=== PATIENT | male | born 1960 | race African-American/Black ===

== ENCOUNTER 2017-05-16 13:18 | Emergency (ER) | payer MEDICAID ==
[~2017-05-16] VITALS: Ht 177.8 cm; Wt 94.0 kg
[2017-05-16] MEDS ORDERED: SODIUM CHLORIDE 0.9% 1,000 ML IV ONE (15:26)
[2017-05-16] MEDS ORDERED: FAMOTIDINE 20MG/2ML VIAL IV STA (15:26)
[2017-05-16] MEDS ORDERED: ONDANSETRON HCL 4MG/2ML VIAL IV STA (15:26)
[2017-05-16] MEDS ORDERED: KETOROLAC 30MG/ML VIAL IV STA (15:26)
[2017-05-16 16:04] LABS: INR 1.1; PROTHROMBIN TIME 11.8 sec (9.4-11.6)
[2017-05-16 16:06] LABS: BASOPHILS % 0.5 % (0.0-2.0); HEMATOCRIT. 52.5 % (42.0-52.0); HEMOGLOBIN. 17.1 g/dL (14.0-18.0); LYMPHOCYTES % 16.9 % (20.0-50.0); MEAN CORPUSCULAR HEMOGLOBIN 27.5 pg (28.0-32.0); MEAN CORPUSCULAR VOLUME 84.2 fL (80.0-94.0); MEAN PLATELET VOLUME 8.8 fl (7.4-10.4); MONOCYTES % 7.3 % (2.0-8.0); NEUTROPHILS % 75.3 % (40.0-76.0); PLATELET 343 x1000/uL (130-400); RED BLOOD CELL COUNT 6.24 mill/uL (4.7-6.1); RED CELL DISTRIBUTION WIDTH 19.3 % (11.6-14.6)
[2017-05-16 16:08] LABS: CARBON DIOXIDE 26 mEq/L (21-32); CHLORIDE 104 mEq/L (98-107)
[2017-05-16 18:35] LABS: CLARITY URINE CLOUDY (CLEAR); COLOR URINE DARK YELLOW (YELLOW); GLUCOSE URINE NEGATIVE (NEGATIVE); KETONES URINE TRACE (NEGATIVE); LEUKOCYTE ESTERASE URINE TRACE (NEGATIVE); NITRITE URINE NEGATIVE (NEGATIVE); OCCULT BLOOD URINE NEGATIVE (NEGATIVE); PROTEIN URINE 1+ (NEGATIVE)
[2017-05-16] MEDS ORDERED: IOHEXOL-300 100 ML BOTTLE ONE (19:33)
[2017-05-16 20:03] VITALS: BP 162/102
== END 2017-05-16 21:33 | disposition home or self-care (01) ==
LOC: ER 13:58
DX: K56.2 Volvulus (principal); K44.9 Diaphragmatic hernia without obstruction or gangrene; K76.0 Fatty (change of) liver, not elsewhere classified; R91.1 Solitary pulmonary nodule
CPT/HCPCS: 36415; 74177; 80053; 81001; 83690; 85025; 85610; 96361; 96374; 96375; 99285; J1885; J2405; J3490; J7030; Q9967; Z7610; 81025

== ENCOUNTER 2017-06-18 16:50 | Emergency (ER) | payer MEDICAID ==
[~2017-06-18] VITALS: Ht 177.8 cm; Wt 94.0 kg
[2017-06-18] MEDS ORDERED: MAGNESIUM/ALUMINUM HYDROXIDE/SIMETHICONE 30ML UDC PO STA (22:24)
[2017-06-18] MEDS ORDERED: PANTOPRAZOLE SODIUM 40 MG/VIAL IV STA (22:24)
[2017-06-18] MEDS ORDERED: VISCOUS LIDOCAINE 2% 15 ML UDC PO STA (22:24)
[2017-06-18] MEDS ORDERED: ONDANSETRON HCL 4MG/2ML VIAL IV STA (22:24)
[2017-06-18] MEDS ORDERED: KETOROLAC 30MG/ML VIAL IV STA (22:24)
[2017-06-18 23:01] LABS: BASOPHILS % 0.3 % (0.0-2.0); HEMATOCRIT. 45.9 % (42.0-52.0); HEMOGLOBIN. 15.3 g/dL (14.0-18.0); LYMPHOCYTES % 12.6 % (20.0-50.0); MEAN CORPUSCULAR HEMOGLOBIN 29.5 pg (28.0-32.0); MEAN CORPUSCULAR VOLUME 88.9 fL (80.0-94.0); MEAN PLATELET VOLUME 8.9 fl (7.4-10.4); MONOCYTES % 3.5 % (2.0-8.0); NEUTROPHILS % 83.6 % (40.0-76.0); PLATELET 289 x1000/uL (130-400); RED BLOOD CELL COUNT 5.17 mill/uL (4.7-6.1); RED CELL DISTRIBUTION WIDTH 18.3 % (11.6-14.6)
[2017-06-18 23:06] LABS: CHLORIDE 108 mEq/L (98-107)
[2017-06-18 23:09] LABS: INR 1.1; PROTHROMBIN TIME 11.6 sec (9.4-11.6)
[2017-06-18 23:15] LABS: CARBON DIOXIDE 25 mEq/L (21-32)
[2017-06-18] MEDS ORDERED: PANTOPRAZOLE SODIUM 40 MG/VIAL IV NR (23:15)
[2017-06-19 02:56] VITALS: BP 144/77
== END 2017-06-19 02:58 | disposition home or self-care (01) ==
LOC: ER 16:59
DX: K29.70 Gastritis, unspecified, without bleeding (principal); K44.9 Diaphragmatic hernia without obstruction or gangrene; B19.20 Unspecified viral hepatitis C without hepatic coma; Z88.5 Allergy status to narcotic agent; Z87.19 Personal history of other diseases of the digestive system
CPT/HCPCS: 36415; 74176; 80053; 83690; 85025; 85610; 93005; 96374; 96375; 99285; C9113; J1885; J2405

== ENCOUNTER 2017-09-14 20:36 | Emergency (ER) | payer MEDICAID ==
[~2017-09-14] VITALS: Ht 177.8 cm; Wt 77.2 kg
[2017-09-14] MEDS ORDERED: KETOROLAC 30MG/ML VIAL IV STA (22:57)
[2017-09-14] MEDS ORDERED: ONDANSETRON HCL 4MG/2ML VIAL IV STA (22:57)
[2017-09-14] MEDS ORDERED: SODIUM CHLORIDE 0.9% 1,000 ML IV ONE (22:57)
[2017-09-14 23:24] LABS: BASOPHILS % 0.2 % (0.0-2.0); HEMATOCRIT. 43.3 % (42.0-52.0); HEMOGLOBIN. 14.8 g/dL (14.0-18.0); MEAN CORPUSCULAR HEMOGLOBIN 32.1 pg (28.0-32.0); MEAN CORPUSCULAR VOLUME 93.7 fL (80.0-94.0); MEAN PLATELET VOLUME 8.9 fl (7.4-10.4); MONOCYTES % 1.9 % (2.0-8.0); NEUTROPHILS % 89.9 % (40.0-76.0); PLATELET 296 x1000/uL (130-400); RED BLOOD CELL COUNT 4.62 mill/uL (4.7-6.1); RED CELL DISTRIBUTION WIDTH 14.2 % (11.6-14.6)
[2017-09-14 23:29] LABS: INR 1.1
[2017-09-14 23:38] LABS: CHLORIDE 108 mEq/L (98-107)
[2017-09-14 23:43] LABS: ETHANOL BLOOD < 10 mg/dL
[2017-09-15] MEDS ORDERED: ONDANSETRON HCL 4MG/2ML VIAL IV STA (00:53)
[2017-09-15] MEDS ORDERED: MORPHINE SULFATE 4 MG/ML CPJ (NOT FOR IM USE) IV STA (00:53)
[2017-09-15 02:19] VITALS: BP 139/76
== END 2017-09-15 02:21 | disposition home or self-care (01) ==
LOC: ER 22:37
DX: R10.13 Epigastric pain (principal); R11.2 Nausea with vomiting, unspecified; Z88.5 Allergy status to narcotic agent
CPT/HCPCS: 36415; 74176; 80053; 83690; 85025; 85610; 96361; 96374; 96375; 96376; 99285; G0482; J1885; J2270; J2405; J7030; Z7610

== ENCOUNTER 2017-09-16 09:11 | Emergency (ER) | payer MEDICAID ==
[~2017-09-16] VITALS: Ht 177.8 cm; Wt 77.0 kg
[2017-09-16] MEDS ORDERED: SODIUM CHLORIDE 0.9% 1,000 ML IV ONE ×2 (11:55→13:54)
[2017-09-16] MEDS ORDERED: FAMOTIDINE 20MG/2ML VIAL IV STA (11:55)
[2017-09-16] MEDS ORDERED: VISCOUS LIDOCAINE 2% 15 ML UDC PO STA (11:55)
[2017-09-16] MEDS ORDERED: ONDANSETRON HCL 4MG/2ML VIAL IV STA ×2 (11:55→14:26)
[2017-09-16] MEDS ORDERED: MAGNESIUM/ALUMINUM HYDROXIDE/SIMETHICONE 30ML UDC PO STA (11:55)
[2017-09-16] MEDS ORDERED: MORPHINE SULFATE 4 MG/ML CPJ (NOT FOR IM USE) IV STA (12:49)
[2017-09-16 12:59] LABS: BASOPHILS % 0.2 % (0.0-2.0); HEMATOCRIT. 44.8 % (42.0-52.0); HEMOGLOBIN. 15.2 g/dL (14.0-18.0); LYMPHOCYTES % 17.9 % (20.0-50.0); MEAN CORPUSCULAR HEMOGLOBIN 32.1 pg (28.0-32.0); MEAN CORPUSCULAR VOLUME 94.3 fL (80.0-94.0); MEAN PLATELET VOLUME 9.1 fl (7.4-10.4); NEUTROPHILS % 75.9 % (40.0-76.0); PLATELET 340 x1000/uL (130-400); RED BLOOD CELL COUNT 4.75 mill/uL (4.7-6.1); RED CELL DISTRIBUTION WIDTH 14.1 % (11.6-14.6)
[2017-09-16 13:04] LABS: CHLORIDE 109 mEq/L (98-107)
[2017-09-16 14:45] LABS: CLARITY URINE CLEAR (CLEAR); COLOR URINE ORANGE (YELLOW); KETONES URINE 2+ (NEGATIVE); LEUKOCYTE ESTERASE URINE TRACE (NEGATIVE); NITRITE URINE NEGATIVE (NEGATIVE); OCCULT BLOOD URINE NEGATIVE (NEGATIVE); PROTEIN URINE TRACE (NEGATIVE); SPECIFIC GRAVITY URINE 1.031 (1.005-1.030)
[2017-09-16 15:04] LABS: *AMPHETAMINES SCREEN URINE NEGATIVE (NEGATIVE); *BARBITURATES SCREEN URINE NEGATIVE (NEGATIVE); *BENZODIAZEPINES SCREEN URINE NEGATIVE (NEGATIVE); *COCAINE SCREEN URINE NEGATIVE (NEGATIVE); METHADONE URINE SCREEN NEGATIVE (NEGATIVE); OPIATES URINE SCREEN PRESUMTIVE POSITIVE (NEGATIVE)
[2017-09-16 15:05] LABS: CANNABINOID URINE SCREEN PRESUMTIVE POSITIVE (NEGATIVE); PHENCYCLIDINE URINE SCREEN NEGATIVE (NEGATIVE)
[2017-09-16 15:30] VITALS: BP 129/75
== END 2017-09-16 16:04 | disposition home or self-care (01) ==
LOC: ER 10:03
DX: R10.33 Periumbilical pain (principal); Z87.19 Personal history of other diseases of the digestive system; Z88.5 Allergy status to narcotic agent
CPT/HCPCS: 36415; 80053; 80305; 81003; 83690; 85025; 96361; 96374; 96375; 96376; 99284; J2270; J2405; J3490; J7030; Z7610

== ENCOUNTER 2017-09-17 08:52 | Emergency (ER) | payer MEDICAID ==
[~2017-09-17] VITALS: Ht 177.8 cm; Wt 78.0 kg
[2017-09-17] MEDS ORDERED: MORPHINE SULFATE 4 MG/ML CPJ (NOT FOR IM USE) IV STA ×2 (10:23→11:34)
[2017-09-17] MEDS ORDERED: SODIUM CHLORIDE 0.9% 1,000 ML IV ONE (10:23)
[2017-09-17] MEDS ORDERED: ONDANSETRON HCL 4MG/2ML VIAL IV STA ×2 (10:23→11:34)
[2017-09-17 10:51] LABS: BASOPHILS % 0.4 % (0.0-2.0); EOSINOPHILS % 0.3 % (0.0-5.0); HEMATOCRIT. 46.2 % (42.0-52.0); HEMOGLOBIN. 15.6 g/dL (14.0-18.0); LYMPHOCYTES % 21.9 % (20.0-50.0); MEAN CORPUSCULAR HEMOGLOBIN 31.9 pg (28.0-32.0); MEAN CORPUSCULAR VOLUME 94.7 fL (80.0-94.0); NEUTROPHILS % 70.4 % (40.0-76.0); PLATELET 284 x1000/uL (130-400); RED BLOOD CELL COUNT 4.88 mill/uL (4.7-6.1); RED CELL DISTRIBUTION WIDTH 14.1 % (11.6-14.6)
[2017-09-17 10:56] LABS: INR 1.1; PROTHROMBIN TIME 11.5 sec (9.4-11.6)
[2017-09-17 11:01] LABS: CHLORIDE 107 mEq/L (98-107)
[2017-09-17] MEDS ORDERED: IOHEXOL-300 100 ML BOTTLE ONE (11:22)
[2017-09-17] MEDS ORDERED: KCL 20MEQ/100ML PREMIX 100 ML IV ONE ×2 (11:45→12:45)
[2017-09-17 12:27] LABS: CLARITY URINE CLEAR (CLEAR); COLOR URINE DARK YELLOW (YELLOW); KETONES URINE TRACE (NEGATIVE); LEUKOCYTE ESTERASE URINE NEGATIVE (NEGATIVE); NITRITE URINE NEGATIVE (NEGATIVE); OCCULT BLOOD URINE NEGATIVE (NEGATIVE); PROTEIN URINE NEGATIVE (NEGATIVE); SPECIFIC GRAVITY URINE 1.045 (1.005-1.030)
[2017-09-17] MEDS ORDERED: POTASSIUM CHLORIDE 20MEQ TABLET SR PO ONE (12:45)
[2017-09-17 17:17] VITALS: BP 148/97
== END 2017-09-17 17:35 | disposition home or self-care (01) ==
LOC: ER 09:41
DX: R10.30 Lower abdominal pain, unspecified (principal); R11.2 Nausea with vomiting, unspecified; K44.9 Diaphragmatic hernia without obstruction or gangrene; E87.6 Hypokalemia; Z98.890 Other specified postprocedural states; Z88.5 Allergy status to narcotic agent; Z87.19 Personal history of other diseases of the digestive system
CPT/HCPCS: 36415; 74177; 80053; 81003; 83690; 85025; 85610; 93005; 96361; 96365; 96366; 96375; 96376; 99285; J2270; J2405; J3480; J7030; Q9967; Z7610

== ENCOUNTER 2018-09-10 08:55 | Emergency (ER) | payer MEDICAID ==
[~2018-09-10] VITALS: Ht 190.5 cm; Wt 73.0 kg
[2018-09-10 11:25] LABS: CLARITY URINE TURBID (CLEAR); COLOR URINE YELLOW (YELLOW); KETONES URINE NEGATIVE (NEGATIVE); LEUKOCYTE ESTERASE URINE NEGATIVE (NEGATIVE); NITRITE URINE NEGATIVE (NEGATIVE); OCCULT BLOOD URINE NEGATIVE (NEGATIVE); PH URINE >=9.0 (4.5-8.0); PROTEIN URINE NEGATIVE (NEGATIVE); SPECIFIC GRAVITY URINE 1.012 (1.005-1.030)
[2018-09-10] MEDS ORDERED: ONDANSETRON HCL 4MG/2ML INJ IV STA ×2 (12:32→15:25)
[2018-09-10] MEDS ORDERED: MORPHINE SULFATE 4 MG/ML CPJ (NOT FOR IM USE) IV STA (12:32)
[2018-09-10] MEDS ORDERED: SODIUM CHLORIDE 0.9% 1,000 ML IV ONE ×2 (12:32→15:25)
[2018-09-10 12:59] LABS: BASOPHILS % 0.1 % (0.0-2.0); EOSINOPHILS % 0.2 % (0.0-5.0); HEMATOCRIT. 42.2 % (42.0-52.0); MEAN CORPUSCULAR VOLUME 96.3 fL (80.0-94.0); MEAN PLATELET VOLUME 8.4 fl (7.4-10.4); NEUTROPHILS % 76.7 % (40.0-76.0); PLATELET 267 x1000/uL (130-400); RED BLOOD CELL COUNT 4.38 mill/uL (4.7-6.1)
[2018-09-10 13:07] LABS: INR 1.1; PROTHROMBIN TIME 10.7 sec (9.1-11.1)
[2018-09-10 13:09] LABS: CHLORIDE 105 mEq/L (98-107)
[2018-09-10 13:12] LABS: ETHANOL BLOOD < 10 mg/dL
[2018-09-10] MEDS ORDERED: IOHEXOL-300 100 ML BOTTLE ONE (15:19)
[2018-09-10] MEDS ORDERED: KETOROLAC 30MG/ML VIAL IV STA (15:25)
[2018-09-10] MEDS ORDERED: MAGNESIUM/ALUMINUM HYDROXIDE/SIMETHICONE 30ML UDC PO STA (15:25)
[2018-09-10] MEDS ORDERED: FAMOTIDINE 20MG/2ML VIAL IV STA (15:25)
[2018-09-10 17:43] LABS: *AMPHETAMINES SCREEN URINE NEGATIVE (NEGATIVE)
[2018-09-10 17:44] LABS: *BARBITURATES SCREEN URINE NEGATIVE (NEGATIVE); *BENZODIAZEPINES SCREEN URINE NEGATIVE (NEGATIVE); *COCAINE SCREEN URINE NEGATIVE (NEGATIVE)
[2018-09-10 17:45] LABS: CANNABINOID URINE SCREEN PRESUMTIVE POSITIVE (NEGATIVE); OPIATES URINE SCREEN NEGATIVE (NEGATIVE); PHENCYCLIDINE URINE SCREEN NEGATIVE (NEGATIVE)
[2018-09-10 17:46] LABS: METHADONE URINE SCREEN NEGATIVE (NEGATIVE)
[2018-09-10 18:36] VITALS: BP 135/72
== END 2018-09-10 18:57 | disposition home or self-care (01) ==
LOC: ER 09:16 → CANBEDREQ 19:38
DX: R11.10 Vomiting, unspecified (principal); R10.13 Epigastric pain; F12.10 Cannabis abuse, uncomplicated; Z88.5 Allergy status to narcotic agent
CPT/HCPCS: 36415; 71045; 74177; 80053; 80305; 80320; 81003; 83690; 85025; 85610; 96374; 96375; 96376; 99284; J1885; J2270; J2405; J3490; J7030; Q9967; G0480

== ENCOUNTER 2018-11-25 10:34 | Emergency (ER) | payer MEDICAID ==
[~2018-11-25] VITALS: Ht 177.8 cm; Wt 75.0 kg
[2018-11-25] MEDS ORDERED: FAMOTIDINE 20MG/2ML VIAL IV STA (11:05)
[2018-11-25] MEDS ORDERED: MORPHINE SULFATE 4 MG/ML CPJ (NOT FOR IM USE) IV STA (11:05)
[2018-11-25] MEDS ORDERED: SODIUM CHLORIDE 0.9% 1,000 ML IV ONE (11:05)
[2018-11-25] MEDS ORDERED: ONDANSETRON HCL 4MG/2ML INJ IV STA (11:05)
[2018-11-25 11:37] LABS: BASOPHILS % 0.2 % (0.0-2.0); EOSINOPHILS % 2.5 % (0.0-5.0); HEMATOCRIT. 44.9 % (42.0-52.0); HEMOGLOBIN. 14.9 g/dL (14.0-18.0); LYMPHOCYTES % 27.1 % (20.0-50.0); MEAN CORPUSCULAR HEMOGLOBIN 32.3 pg (28.0-32.0); MEAN CORPUSCULAR VOLUME 97.1 fL (80.0-94.0); MEAN PLATELET VOLUME 8.6 fl (7.4-10.4); MONOCYTES % 7.4 % (2.0-8.0); NEUTROPHILS % 62.8 % (40.0-76.0); PLATELET 242 x1000/uL (130-400); RED BLOOD CELL COUNT 4.62 mill/uL (4.7-6.1); RED CELL DISTRIBUTION WIDTH 13.4 % (11.6-14.6)
[2018-11-25 11:40] LABS: CHLORIDE 109 mEq/L (98-107)
[2018-11-25 11:44] LABS: ETHANOL BLOOD < 10 mg/dL
[2018-11-25 11:51] LABS: PROTHROMBIN TIME 10.7 sec (9.6-11.0)
[2018-11-25] MEDS ORDERED: LORAZEPAM 2MG/ML CPJ IV ONE (13:15)
[2018-11-25 13:50] LABS: *AMPHETAMINES SCREEN URINE NEGATIVE (NEGATIVE); *BARBITURATES SCREEN URINE NEGATIVE (NEGATIVE); *BENZODIAZEPINES SCREEN URINE NEGATIVE (NEGATIVE); *COCAINE SCREEN URINE NEGATIVE (NEGATIVE)
[2018-11-25 13:51] LABS: CANNABINOID URINE SCREEN PRESUMTIVE POSITIVE (NEGATIVE); METHADONE URINE SCREEN NEGATIVE (NEGATIVE); OPIATES URINE SCREEN PRESUMTIVE POSITIVE (NEGATIVE); PHENCYCLIDINE URINE SCREEN NEGATIVE (NEGATIVE)
[2018-11-25 14:11] LABS: CLARITY URINE CLEAR (CLEAR); COLOR URINE YELLOW (YELLOW); KETONES URINE TRACE (NEGATIVE); LEUKOCYTE ESTERASE URINE NEGATIVE (NEGATIVE); NITRITE URINE NEGATIVE (NEGATIVE); OCCULT BLOOD URINE NEGATIVE (NEGATIVE); PH URINE 5.5 (4.5-8.0); PROTEIN URINE NEGATIVE (NEGATIVE); SPECIFIC GRAVITY URINE 1.014 (1.005-1.030)
[2018-11-25 14:55] VITALS: BP 144/92
== END 2018-11-25 15:10 | disposition home or self-care (01) ==
LOC: ER 10:34
DX: R10.13 Epigastric pain (principal); R11.10 Vomiting, unspecified; F12.10 Cannabis abuse, uncomplicated; R03.0 Elevated blood-pressure reading, without diagnosis of hypertension
CPT/HCPCS: 36415; 71045; 80053; 80305; 80320; 81003; 83690; 85025; 85610; 96361; 96374; 96375; 99284; J2060; J2270; J2405; J3490; J7030; Z7610; G0480

== ENCOUNTER 2019-01-25 08:58 | Emergency (ER) | payer MEDICAID ==
[~2019-01-25] VITALS: Ht 177.8 cm; Wt 73.0 kg
[2019-01-25] MEDS ORDERED: ONDANSETRON HCL 4MG/2ML INJ IV STA (10:29)
[2019-01-25] MEDS ORDERED: MAGNESIUM/ALUMINUM HYDROXIDE/SIMETHICONE 30ML UDC PO STA (10:29)
[2019-01-25] MEDS ORDERED: SODIUM CHLORIDE 0.9% 1,000 ML IV ONE (10:29)
[2019-01-25] MEDS ORDERED: ACETAMINOPHEN 325MG TABLET PO STA (10:29)
[2019-01-25] MEDS ORDERED: KETOROLAC 30MG/ML VIAL IV STA (10:29)
[2019-01-25] MEDS ORDERED: FAMOTIDINE 20MG/2ML VIAL IV STA (10:29)
[2019-01-25] MEDS ORDERED: MORPHINE SULFATE 4 MG/ML CPJ (NOT FOR IM USE) IV ONE (10:45)
[2019-01-25 11:20] LABS: BASOPHILS % 0.4 % (0.0-2.0); EOSINOPHILS % 1.4 % (0.0-5.0); HEMATOCRIT. 42.9 % (42.0-52.0); HEMOGLOBIN. 14.3 g/dL (14.0-18.0); LYMPHOCYTES % 18.3 % (20.0-50.0); MEAN CORPUSCULAR HEMOGLOBIN 32.6 pg (28.0-32.0); MEAN PLATELET VOLUME 8.4 fl (7.4-10.4); MONOCYTES % 5.9 % (2.0-8.0); PLATELET 217 x1000/uL (130-400); RED BLOOD CELL COUNT 4.38 mill/uL (4.7-6.1); RED CELL DISTRIBUTION WIDTH 12.7 % (11.6-14.6)
[2019-01-25 11:25] LABS: CHLORIDE 109 mEq/L (98-107)
[2019-01-25] MEDS ORDERED: METOCLOPRAMIDE HCL 10MG/2ML VIAL IV ONE (12:30)
[2019-01-25 15:40] VITALS: BP 118/95
== END 2019-01-25 16:50 | disposition home or self-care (01) ==
LOC: ER 15:01
DX: K86.1 Other chronic pancreatitis (principal)
CPT/HCPCS: 36415; 74177; 80053; 83690; 85025; 93005; 96361; 96374; 96375; 99284; J1885; J2270; J2405; J2765; J3490; J7030

== ENCOUNTER 2019-02-13 08:27 | Emergency (ER) | payer MEDICAID ==
[2019-02-13] MEDS ORDERED: KETOROLAC 30MG/ML VIAL IV STA (08:40)
[2019-02-13] MEDS ORDERED: ONDANSETRON HCL 4MG/2ML INJ IV STA (08:40)
[2019-02-13] MEDS ORDERED: MAGNESIUM/ALUMINUM HYDROXIDE/SIMETHICONE 30ML UDC PO STA (08:40)
[2019-02-13] MEDS ORDERED: SODIUM CHLORIDE 0.9% 1,000 ML IV ONE (08:40)
[2019-02-13 09:16] LABS: BASOPHILS % 0.3 % (0.0-2.0); HEMATOCRIT. 45.3 % (42.0-52.0); HEMOGLOBIN. 15.3 g/dL (14.0-18.0); MEAN CORPUSCULAR HEMOGLOBIN 32.8 pg (28.0-32.0); MEAN CORPUSCULAR VOLUME 97.1 fL (80.0-94.0); MEAN PLATELET VOLUME 8.5 fl (7.4-10.4); MONOCYTES % 6.1 % (2.0-8.0); NEUTROPHILS % 75.6 % (40.0-76.0); PLATELET 251 x1000/uL (130-400); RED BLOOD CELL COUNT 4.67 mill/uL (4.7-6.1); RED CELL DISTRIBUTION WIDTH 13.1 % (11.6-14.6)
[2019-02-13 09:21] LABS: CLARITY URINE CLEAR (CLEAR); COLOR URINE YELLOW (YELLOW); KETONES URINE NEGATIVE (NEGATIVE); LEUKOCYTE ESTERASE URINE NEGATIVE (NEGATIVE); NITRITE URINE NEGATIVE (NEGATIVE); OCCULT BLOOD URINE NEGATIVE (NEGATIVE); PROTEIN URINE NEGATIVE (NEGATIVE); SPECIFIC GRAVITY URINE 1.014 (1.005-1.030)
[2019-02-13 09:23] LABS: CHLORIDE 104 mEq/L (98-107)
[2019-02-13 09:24] LABS: PROTHROMBIN TIME 10.4 sec (9.6-11.0)
[2019-02-13 09:27] LABS: ETHANOL BLOOD < 10 mg/dL
[2019-02-13 09:45] LABS: *BARBITURATES SCREEN URINE NEGATIVE (NEGATIVE); *BENZODIAZEPINES SCREEN URINE NEGATIVE (NEGATIVE); *COCAINE SCREEN URINE PRESUMTIVE POSITIVE (NEGATIVE); METHADONE URINE SCREEN NEGATIVE (NEGATIVE); OPIATES URINE SCREEN NEGATIVE (NEGATIVE)
[2019-02-13 09:46] LABS: CANNABINOID URINE SCREEN PRESUMTIVE POSITIVE (NEGATIVE); PHENCYCLIDINE URINE SCREEN NEGATIVE (NEGATIVE)
[2019-02-13 09:47] LABS: *AMPHETAMINES SCREEN URINE NEGATIVE (NEGATIVE)
[2019-02-13] MEDS ORDERED: LORAZEPAM 2MG/ML CPJ IV ONE (10:00)
[2019-02-13] MEDS ORDERED: METOCLOPRAMIDE HCL 10MG/2ML VIAL IV ONE (10:15)
[2019-02-13 10:20] VITALS: BP 155/85
== END 2019-02-13 11:00 | disposition home or self-care (01) ==
LOC: ER 08:27
DX: R10.0 Acute abdomen (principal); T40.5X1A Poisoning by cocaine, accidental (unintentional), initial encounter; F14.188 Cocaine abuse with other cocaine-induced disorder; F12.188 Cannabis abuse with other cannabis-induced disorder; T40.7X1A Poisoning by cannabis (derivatives), accidental (unintentional), initial encounter; R11.2 Nausea with vomiting, unspecified; Y92.89 Other specified places as the place of occurrence of the external cause
CPT/HCPCS: 36415; 74176; 80053; 80305; 80320; 81003; 83690; 85025; 85610; 96374; 96375; 99284; J1885; J2060; J2405; J2765; J7030; G0480